=== PATIENT | female | born 1995 | race Caucasian/White ===

== ENCOUNTER 2019-03-19 04:40 | Inpatient (IN) | payer BC, OTHER ==
[2019-03-19 06:09] LABS: BASO % 0.2 % (0-2.0); EOS % 0.8 % (0-4.5); HEMATOCRIT 32.8 % (32.4-45.2); HEMOGLOBIN 11.1 GM/dL (10.7-15.3); LYMPH % 14.1 % (8-40); MCH 31.7 pg (25.7-33.7); MCHC 33.9 g/dl (32.0-36.0); MEAN CELL VOLUME 93.3 fl (80-96); MEAN PLT VOLUME 9.5 fl (7.5-11.1); MONO % 8.5 % (3.8-10.2); NEUT % 76.4 % (42.8-82.8); PLATELET COUNT 222 K/MM3 (134-434); RBC 3.52 M/mm3 (3.60-5.2); RDW 14.2 % (11.6-15.6)
[2019-03-19 06:28] LABS: INR 0.95 (0.83-1.09); PROTHROMBIN TIME (PATIENT) 11.2 SEC (9.7-13.0)
[2019-03-19 06:30] LABS: ACTIVATED PTT 31.1 SECONDS (25.2-36.5); BLOOD UREA NITROGEN 5.6 mg/dL (7-18); CALCIUM 8.7 mg/dL (8.5-10.1); CREATININE 0.5 mg/dL (0.55-1.3); POTASSIUM 3.8 mmol/L (3.5-5.1)
[2019-03-19 06:44] VITALS: BMI 25.3
[2019-03-19] MEDS ORDERED: ELECTROLYTE-148 SOLN 1,000 ML IV SCH (07:00)
[2019-03-19] MEDS ORDERED: FENTANYL/BUPIVACAINE/NS/PF - PCEA - 50 ML DISP.SYRIN EP ONE ×3 (07:41→15:32)
[2019-03-19] MEDS ORDERED: NALOXONE HCL 0.4 MG/ML VIAL IVPUSH PRN (07:44)
[2019-03-19] MEDS ORDERED: LIDO 2%/EPI 1:200000 PRESRVFRE (20 ML SDVIAL) ONE (07:47)
[2019-03-19] MEDS: FENTANYL/BUPIVACAINE/NS/PF - PCEA - 50 ML DISP.SYRIN EP SCH (08:10)
[2019-03-19] MEDS ORDERED: OXYTOCIN 20 UNITS in 0.9% NS 20 UNIT/1,000 ML INFUS.BAG IV ONE ×2 (14:32→18:49)
--- NOTE | 2019-03-19 17:10 | HP ---
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 Weeks Gestation by Dates: 39.5 ...EDC by Dates: 03/21/18 Heme/Onc: Yes: Anemia Infectious Disease: Yes: Other (txed for BV and yeast) - Past Surgical History Hx Myomectomy: No Hx Transabdominal Cerclage: No Additional Surgical History: lt oophorectomy - Smoking History Smoking history: Never smoked - Alcohol/Substance Use Hx Alcohol Use: No - Social History Usual Living Arrangement: Yes: With Spouse History of Recent Travel: No Home Medications - Allergies Allergies/Adverse Reactions: Allergies Allergy/AdvReac Type Severity Reaction Status Date / Time benzoyl peroxide Allergy Intermediate Swelling Verified 03/19/19 07:07 - Home Medications Home Medications: Ambulatory Orders Pnv No.95/Ferrous Fum/Folic AC [ Vitamin Tablet] 1 tab PO DAILY Review of Systems - Review of Systems Constitutional: reports: No Symptoms Eyes: reports: No Symptoms HENT: reports: No Symptoms Neck: reports: No Symptoms Cardiovascular: reports: No Symptoms Respiratory: reports: No Symptoms Gastrointestinal: reports: No Symptoms Genitourinary: reports: No Symptoms Breasts: reports: No Symptoms Reported Musculoskeletal: reports: No Symptoms Integumentary: reports: No Symptoms Neurological: reports: Headache Endocrine: reports: No Symptoms Hematology/Lymphatic: reports: No Symptoms Psychiatric: reports: No Symptoms Physical Exam - Maternity Vital Signs: Vital Signs Temperature 98.4 F 03/19/19 13:00 Pulse Rate 88 03/19/19 16:15 Respiratory Rate 03/19/19 16:15 Blood Pressure 125/80 03/19/19 16:15 O2 Sat by Pulse Oximetry (%) 100 03/19/19 16:15 Constitutional: Yes: Well Nourished, No Distress, Calm Eyes: Yes: WNL, Conjunctiva Clear, EOM Intact HENT: Yes: WNL, Atraumatic, Normocephalic Neck: Yes: WNL, Supple, Trachea Midline Cardiovascular: Yes: WNL, Regular Rate and Rhythm Breast(s): Yes: WNL - Abdominal Exam/OB Fundal Height: 38 Number of Fetuses: Single Presentation: Vertex Contractions: Yes Regularity: Regular Intensity: Mod/Strong Monitor Mode: External Heart Rate Location: [facility] Category: I Accelerations: Non-Uniform Decelerations: None - Vaginal Exam/OB Speculum Exam: No Dilatation (cm): 3 cm Effacement (%): 80 Amniotic Membrane Status: Intact Presentation: Vertex/Position Station: -2 - Physical Exam Musculoskeletal: Yes: WNL Extremities: Yes: WNL Edema: LLE: Trace, RLE: Trace Deep Tendon Reflex Grade: Normal +2 Psychiatric: Yes: WNL - Labs Lab Results: CBC, BMP 03/19/19 05:40 03/19/19 05:40 Hemorrhage Risk Assessment - Risk Factors Medium Risk Factors: Yes: None High Risk Factors: Yes: None Risk Score: 1 Risk Level: Medium Risk Problem List - Problems (1) with 39 completed weeks gestation Code(s): Z3A.39 - 39 WEEKS GESTATION OF (2) Labor established Code(s): ESA5333 - (3) Seizure Code(s): R56.9 - UNSPECIFIED CONVULSIONS (4) Seizure disorder Code(s): G40.909 - EPILEPSY, UNSP, NOT INTRACTABLE, WITHOUT STATUS EPILEPTICUS Assessment/Plan admit FHM pain management , wantss epidural anesthesia anticipate vaaginal delivery GBS negative
--- NOTE | 2019-03-19 17:11 | PN ---
Progress Note (short form) - Note Progress Note: 430 pm full 100 vx 3+ narda, wants to push , r cat 1
--- NOTE | 2019-03-19 17:14 | PN ---
Delivery - Delivery Vaginal Delivery: Spontaneous Type of Anesthesia: Local, Epidural Episiotomy/Laceration: Midline (cx full , head on pernium , head delivered, nasopharynx suctioned , ant and posterior shoulder with no difficulty , live baby girl, apgaar 8/9 , median episiotmy in 3 layers with 2 chromic in 3 layers , placenta spontaneous , complete , rectal exam no defect, good tone ebl 400cc , baby bonded with mom) Delivery, Single - Feeding Plan Initial Plan: Elected not to breastfeed exclusively throughout hospitalization
[2019-03-19] MEDS ORDERED: BISACODYL 10 MG SUPP.RECT RC PRN (17:15)
[2019-03-19] MEDS ORDERED: BENZOCAINE 20% 57 GM BOTTLE TP PRN (17:15)
[2019-03-19] MEDS ORDERED: BENZOCAINE 28 GM HEMORRHOIDAL OINTMENT TP PRN (17:15)
[2019-03-19] MEDS ORDERED: WITCH HAZEL 50% (TUCKS) 40 PAD/JAR PAD TP PRN (17:15)
[2019-03-19] MEDS ORDERED: METHYLERGONOVINE MALEATE 0.2 MG/1 ML AMP IM PRN (17:15)
[2019-03-19] MEDS ORDERED: D5W-LR W/ 20 UNITS OXYTOCIN 20 UNIT/1,000 ML INFUS.BAG IV SCH (17:15)
--- NOTE | 2019-03-19 17:15 | PN ---
Progress Note (short form) - Note Progress Note: 2 pm srom clear, fhr cat1
[2019-03-19] MEDS ORDERED: IBUPROFEN 600 MG TABLET (FP) PO ONE (17:53)
[2019-03-19] MEDS ORDERED: ACETAMINOPHEN 325 MG TABLET (FP) ONE (17:54)
[2019-03-19] MEDS: ACETAMINOPHEN 325 MG TABLET (FP) PO PRN ×2 (17:55→21:34)
[2019-03-19] MEDS: IBUPROFEN 600 MG TABLET (FP) PO PRN ×2 (17:55→21:33)
[2019-03-19] MEDS ORDERED: oxyCODONE HCL 5 MG TABLET PO ONE (18:00)
[2019-03-19] MEDS ORDERED: ACETAMINOPHEN 325 MG TABLET (FP) PO ONE (18:00)
[2019-03-19] MEDS ORDERED: OXYTOCIN 20 UNITS in 0.9% NS 20 UNIT/1,000 ML INFUS.BAG IV SCH (18:15)
[2019-03-19] MEDS: FERROUS SO4 325 MG TABLET (FP) PO SCH (18:21)
--- NOTE | 2019-03-19 19:43 | CON.NEURO ---
Consult Consult Specialty:: harshal Referred by:: Bk - History of Present Illness History of Present Illness: 23 year sold woman s/p normal delievery with hx of ?? 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 (hx seizure disorder, on no meds ,last episode last summer) Infectious Disease: Yes: Other (txed for BV and yeast) - Past Surgical History Additional Surgical History: lt oophorectomy - Alcohol/Substance Use Hx Alcohol Use: No - Smoking History Smoking history: Never smoked - Social History History of Recent Travel: No Home Medications - Allergies Allergies/Adverse Reactions: Allergies Allergy/AdvReac Type Severity Reaction Status Date / Time benzoyl peroxide Allergy Intermediate Swelling Verified 03/19/19 07:07 - Home Medications Home Medications: Ambulatory Orders Pnv No.95/Ferrous Fum/Folic AC [ Vitamin Tablet] 1 tab PO DAILY Family Medical History Family History: Unable to Obtain Review of Systems - Review of Systems Constitutional: reports: No Symptoms Eyes: reports: No Symptoms Neurological: reports: No Symptoms Physical Exam-Neuro Vital Signs: Vital Signs Temperature 99.7 F H 03/19/19 17:50 Pulse Rate 96 H 03/19/19 17:35 Respiratory Rate 102 H 03/19/19 17:50 Blood Pressure 124/65 03/19/19 17:50 O2 Sat by Pulse Oximetry (%) 100 03/19/19 16:15 Constitutional: Yes: Well Nourished Neck: Yes: WNL Cardiovascular: Yes: WNL Psychiatric: Yes: Alert, Oriented Labs: CBC, BMP 03/19/19 05:40 03/19/19 05:40 INR, PTT INR 0.95 (0.83-1.09) 03/19/19 05:40 - Neuro Exam Level Of Consciousness: Yes: Oriented to Person, Oriented to Place Eyes: Yes: PERRLA Speech: WNL Dominant Hand: Right Cranial Nerves II-XII Intact: Yes Gag: Present DTR's: 1+ Left Bicep, 1+ Right Bicep, 1+ Left Tricep, 1+ Right Tricep Response to light touch: Normal Response to pain prick: Normal Response to temperature: Normal Response to vibration: Normal Motor Strength: 3/5: Left Arm, Right Arm, Left Leg, Right Leg Gait: Deferred Problem List - Problems (1) Seizure Assessment/Plan: sz precautions Head CT EEg as outpatient No Antiseizure for now Thank Ricky caputo Md Code(s): R56.9 - UNSPECIFIED CONVULSIONS
--- NOTE | 2019-03-20 07:52 | PN ---
Post Progress Note - Subjective Subjective: patient is doing well, lochia decreased, planning to breast feed, S/P neuro consult for H/O seizures Post Day: 1 Type of Delivery: Vital Signs: Vital Signs Temperature 98.7 F 03/20/19 06:00 Pulse Rate 85 03/20/19 06:00 Respiratory Rate 20 03/20/19 06:00 Blood Pressure 111/66 03/20/19 06:00 O2 Sat by Pulse Oximetry (%) 100 03/19/19 16:15 Breast Exam: Yes: Other Uterus: Yes: Fundus Firm Abdomen/GI: Yes: Abdomen soft Lochia, amount: Moderate Extremities: Yes: Calves non-tender Activity: Ambulating - Labs Labs: CBC WBC 15.0 K/mm3 (4.0-10.0) H 03/19/19 05:40 RBC 3.52 M/mm3 (3.60-5.2) L 03/19/19 05:40 Hgb 11.1 GM/dL (10.7-15.3) 03/19/19 05:40 Hct 32.8 % (32.4-45.2) 03/19/19 05:40 MCV 93.3 fl (80-96) 03/19/19 05:40 MCH 31.7 pg (25.7-33.7) 03/19/19 05:40 MCHC 33.9 g/dl (32.0-36.0) 03/19/19 05:40 RDW 14.2 % (11.6-15.6) 03/19/19 05:40 Plt Count 222 K/MM3 (134-434) 03/19/19 05:40 MPV 9.5 fl (7.5-11.1) 03/19/19 05:40 Absolute Neuts (auto) 11.5 K/mm3 (1.5-8.0) H 03/19/19 05:40 Neutrophils % 76.4 % (42.8-82.8) 03/19/19 05:40 Lymphocytes % 14.1 % (8-40) 03/19/19 05:40 Monocytes % 8.5 % (3.8-10.2) 03/19/19 05:40 Eosinophils % 0.8 % (0-4.5) 01/13/20 05:40 Basophils % 0.2 % (0-2.0) 03/19/19 05:40 Nucleated RBC % 0 % (0-0) 03/19/19 05:40 Assessment/Plan 23 y/o on PPD #1 in stable condition, H/O seizure with last episode in September, neurology on board -Continue PP care -F/U neurology -Anticipate D/C home tomorrow
[2019-03-20] MEDS ORDERED: oxyCODONE HCL 5 MG TABLET ONE (07:54)
[2019-03-20] MEDS: IBUPROFEN 600 MG TABLET (FP) PO PRN ×3 (07:56→20:48)
[2019-03-20] MEDS ORDERED: oxyCODONE HCL 5 MG TABLET PO ONE (08:03)
[2019-03-20 09:17] LABS: BASO % 0.2 % (0-2.0); EOS % 0.4 % (0-4.5); HEMATOCRIT 30.8 % (32.4-45.2); HEMOGLOBIN 10.3 GM/dL (10.7-15.3); LYMPH % 4.5 % (8-40); MCH 31.2 pg (25.7-33.7); MCHC 33.3 g/dl (32.0-36.0); MEAN CELL VOLUME 93.6 fl (80-96); MEAN PLT VOLUME 9.2 fl (7.5-11.1); MONO % 5.9 % (3.8-10.2); PLATELET COUNT 215 K/MM3 (134-434); RBC 3.29 M/mm3 (3.60-5.2); RDW 14.2 % (11.6-15.6); WHITE BLOOD COUNT 21.9 K/mm3 (4.0-10.0)
[2019-03-20] MEDS: FERROUS SO4 325 MG TABLET (FP) PO SCH ×2 (10:19→20:48)
[2019-03-20] MEDS: PRENATAL VITAMINS W/ FOLIC ACID TABLET (FP) PO SCH (10:19)
[2019-03-20] MEDS: ACETAMINOPHEN 325 MG TABLET (FP) PO PRN ×2 (14:05→20:48)
[2019-03-20 14:48] LABS: ANISOCYTOSIS 1+; MACROCYTOSIS 0; PLATELET ESTIMATE NORMAL
[2019-03-20] MEDS ORDERED: SENNOSIDES/DOCUSATE COMBO (SENNA PLUS) TABLET (UD) PO PRN (22:00)
[2019-03-20] MEDS: FENTANYL/BUPIVACAINE/NS/PF - PCEA - 50 ML DISP.SYRIN EP SCH (23:59)
[2019-03-21] MEDS: ACETAMINOPHEN 325 MG TABLET (FP) PO PRN ×2 (05:13→12:04)
[2019-03-21] MEDS: IBUPROFEN 600 MG TABLET (FP) PO PRN ×2 (05:13→12:05)
--- NOTE | 2019-03-21 07:35 | DS ---
Physical Exam-PRODUCTION CORRUGATOR Vital Signs: Vital Signs Temperature 98.2 F 03/21/19 05:20 Pulse Rate 93 H 03/21/19 05:20 Respiratory Rate 18 03/21/19 05:20 Blood Pressure 119/72 03/21/19 05:20 O2 Sat by Pulse Oximetry (%) 100 03/19/19 16:15 Constitutional: Yes: Well Nourished Eyes: Yes: WNL HENT: Yes: WNL Neck: Yes: WNL Cardiovascular: Yes: WNL Respiratory: Yes: WNL Gastrointestinal: Yes: WNL ....Post : Yes: Uterus firm, Uterus non-tender (upto umblicus), Slight lochia rubra (perineum laceration healing) Breast(s): Yes: WNL (soft, not engorged , BF) Musculoskeletal: Yes: WNL Extremities: Yes: WNL. No: Calf Tenderness Edema: LLE: 1+, RLE: 1+ Integumentary: Yes: WNL, Tattoos Neurological: Yes: WNL, Other (neuroconsult done) ...Motor Strength: WNL Psychiatric: Yes: WNL Labs: CBC, BMP 03/20/19 08:42 03/19/19 05:40 Delivery - Delivery Vaginal Delivery: Spontaneous Type of Anesthesia: Local, Epidural Episiotomy/Laceration: Midline EBL (cc): 400 Delivery, Single - Stages of Labor Date 1st Stage Initiatied: 03/19/19 Time 1st Stage Initiated: 00:00 Date 2nd Stage Initiated: 03/19/19 Time 2nd Stage Initiated: 16:30 Date of Delivery: 03/19/19 Time of Delivery: 16:43 Time Placenta Delivered: 17:00 - Condition of Hat Designer/Greenhouse Specialist Present: No Infant Gender: Female Weight: 7 lb 13 oz Position: Left, OA Total Hours ROM (Hrs/Mins): 3hrs - 1 Minute Total Score: 8 5 Minutes Total Score: 9 - [place] Feeding Plan Initial Plan: Elected not to breastfeed exclusively throughout hospitalization Remarks - Remarks Remarks: pp course uneventful pt need to follow up with neurologist for seizure follow up discharge today Discharge Summary Problems reviewed: Yes Reason For Visit: LABOR Current Active Problems Labor established (Acute) Normal spontaneous vaginal delivery (Acute) with 39 completed weeks gestation (Acute) Seizure (Acute) Seizure disorder (Acute) Condition: Stable - Instructions Diet, Activity, Other Instructions: Discharge Instructions * Out of Bed * * Regular Diet * Salena Care * Avoid sex for 6 weeks * RTC 3 weeks for f/u at [address] [place] [address], call [phone] Ruelas * Follow with your Neurologist for Seizures If you experience excessive bleeding or fever over 101 degrees, call doctor, the clinic or go to the Emergency Room. Referrals: Tay Ruelas MD [Staff Physician] - Disposition: HOME - Home Medications Comprehensive Discharge Medication List: Ambulatory Orders Pnv No.95/Ferrous Fum/Folic AC [ Vitamin Tablet] 1 tab PO DAILY Acetaminophen [Tylenol .Regular Strength -] 650 mg PO Q3H PRN tablet 03/21/19 Benzocaine [Americaine 20% [place] -] 1 spray TP PRN PRN bottle 03/21/19 Ferrous Sulfate [Feosol] 325 mg PO DAILY #30 tab 03/21/19 Ibuprofen [Motrin -] 200 mg PO Q4H PRN tablet 03/21/19 Vitamins (Sjr) - 1 tab PO DAILY #60 tablet 03/21/19 Witch Joslyn 50% (Tucks) [Tucks Pads -] 1 pad TP PRN PRN pad 03/21/19
[2019-03-21 08:45] VITALS: BP 115/74; PULSE 80; TEMP 98.3
[2019-03-21] MEDS: FERROUS SO4 325 MG TABLET (FP) PO SCH (10:05)
[2019-03-21] MEDS: PRENATAL VITAMINS W/ FOLIC ACID TABLET (FP) PO SCH (10:05)
== END 2019-03-21 13:10 | disposition home or self-care (01) | DRG 807 ==
LOC: UNDOADMIN 04:40 → JLDR 04:40 → J3W 20:10
PROVIDERS: ADMIT Obstetrics & Gynecology; ATTEND Obstetrics & Gynecology
PROC: 0W8NXZZ Division of Female Perineum, External Approach (ICD-10-PCS; principal; 2019-03-19)
PROC: 10E0XZZ Delivery of Products of Conception, External Approach (ICD-10-PCS; 2019-03-19)
DX: O99.353 Diseases of the nervous system complicating pregnancy, third trimester (principal); Z37.0 Single live birth; Z3A.39 39 weeks gestation of pregnancy
CPT/HCPCS: 36415; 36600; 59409; 80048; 82803; 85025; 85610; 85730; 86593; 86850; 86900; 86901

== ENCOUNTER 2019-03-26 03:25 | Inpatient (IN) | payer BC, OTHER ==
[2019-03-26 03:36] VITALS: BMI 23.9
[2019-03-26] MEDS ORDERED: SODIUM CHLORIDE 0.9% 500 ML INFUS.BAG IV ONE (03:43)
[2019-03-26] MEDS ORDERED: OXYTOCIN 20 UNITS in 0.9% NS 1000 ML INFUS.BAG IV ONE (03:46)
[2019-03-26] MEDS ORDERED: OXYTOCIN 10 UNITS/ML VIAL IM ONE (03:47)
[2019-03-26] MEDS ORDERED: OXYTOCIN 10 UNITS/ML VIAL ONE ×2 (03:51→03:55)
[2019-03-26] MEDS ORDERED: ONDANSETRON 4 MG/2 ML VIAL IVPUSH ONE (03:54)
[2019-03-26] MEDS ORDERED: ONDANSETRON 4 MG/2 ML VIAL ONE (03:54)
--- NOTE | 2019-03-26 03:55 | PDOC ---
History of Present Illness - General Chief Complaint: Vaginal Bleeding Stated Complaint: VAGINAL BLEEDING Time Seen by Provider: 03/26/19 03:54 - History of Present Illness Initial Comments: The pt is a 23F , 7 days post s/p , spotting since that time, however sudden onset profuse vaginal bleeding tonight with passage of clots and blood. Denies fevers, chest pain, SOB, dizziness, vision changes, abdominal pain, dysuria, hematuria, diarrhea, blood in stool Denies PMH, PSH, meds 03/26/19 03:54 Past History - Past Medical History Allergies/Adverse Reactions: Allergies Allergy/AdvReac Type Severity Reaction Status Date / Time benzoyl peroxide Allergy Intermediate Swelling Verified 03/26/19 03:35 Home Medications: Ambulatory Orders Pnv No.95/Ferrous Fum/Folic AC [ Vitamin Tablet] 1 tab PO DAILY Acetaminophen [Tylenol .Regular Strength -] 650 mg PO Q3H PRN tablet 03/21/19 Benzocaine [Americaine 20% [place] -] 1 spray TP PRN PRN bottle 03/21/19 Ferrous Sulfate [Feosol] 325 mg PO DAILY #30 tab 03/21/19 Ibuprofen [Motrin -] 200 mg PO Q4H PRN tablet 03/21/19 Vitamins (Sjr) - 1 tab PO DAILY #60 tablet 03/21/19 Witch Joslyn 50% (Tucks) [Tucks Pads -] 1 pad TP PRN PRN pad 03/21/19 - Psycho Social/Smoking Cessation Hx Smoking History: Never smoked Hx Alcohol Use: No Drug/Substance Use Hx: No *Physical Exam - Vital Signs Last Vital Signs Temp Pulse Resp BP Pulse Ox 98.2 F 78 20 138/78 100 03/26/19 03:35 03/26/19 03:35 03/26/19 03:35 03/26/19 03:35 03/26/19 03:35 - Physical Exam GENERAL: Awake, alert, and oriented to person/place/time, anxious appearing HEAD: No signs of trauma, normoc ephalic, atraumatic EYES: PERRLA, EOMI, sclera anicteric, conjunctiva clear ENT: Hearing grossly normal, nares patent, oropharynx clear without exudates. Moist mucosa LUNGS: No distress, speaks in full sentences, clear to auscultation bilaterally HEART: Regular rate and rhythm, normal S1 and S2, no murmurs appreciated, peripheral pulses normal and equal bilaterally ABDOMEN: Soft, mild suprapubic TTP w/o rebound or guarding, normoactive bowel sounds : Copious blood/clot at vaginal introits EXTREMITIES: Normal inspection, Normal range of motion, no edema. No clubbing or cyanosis NEUROLOGICAL: Cranial nerves II through XII grossly intact. Normal speech, no focal sensorimotor deficits SKIN: Warm, Dry 03/26/19 04:01 ED Treatment Course - LABORATORY CBC & Chemistry Diagram: 03/26/19 03:36 03/26/19 03:36 - Medications Given in the ED: ED Medications Discontinued Medications Generic Name Dose Route Start Last Admin Trade Name Tito PRN Reason Stop Dose Admin Sodium Chloride 1,000 ml 03/26/19 03:43 03/26/19 03:49 Normal Saline - IV 03/26/19 03:44 1,000 ml ONCE ONE Administration Medical Decision Making - Medical Decision Making The pt is a 23F , 7 days post s/p , spotting since that time, however sudden onset profuse vaginal bleeding tonight with passage of clots and blood. ED Course 2 large bore IVs placed Labs drawn and sent IVF and Pitocin initiated Message left for Dr. Ruelas, awaiting call back L&D contacted, will transfer pt to L&D Pt normotensive, non-tachycardic at time of department departure Labs pending 03/26/19 03:59 Consent for blood transfusion obtained and 2u pRBCs ordered 03/26/19 05:47 Discharge - Discharge Information Problems reviewed: Yes Clinical Impression/Diagnosis: Vaginal hemorrhage Condition: Good - Admission Yes - Follow up/Referral - Patient Discharge Instructions - Post Discharge Activity
[2019-03-26] MEDS ORDERED: OXYTOCIN 20 UNITS in 0.9% NS 20 UNIT/1,000 ML INFUS.BAG IV SCH ×3 (04:00→09:58)
[2019-03-26 04:01] LABS: BASO % 0.4 % (0-2.0); EOS % 2.4 % (0-4.5); HEMATOCRIT 30.5 % (32.4-45.2); HEMOGLOBIN 10.2 GM/dL (10.7-15.3); LYMPH % 29.5 % (8-40); MCH 31.4 pg (25.7-33.7); MCHC 33.4 g/dl (32.0-36.0); MEAN CELL VOLUME 93.9 fl (80-96); MEAN PLT VOLUME 8.1 fl (7.5-11.1); MONO % 10.1 % (3.8-10.2); NEUT % 57.6 % (42.8-82.8); PLATELET COUNT 376 K/MM3 (134-434); RBC 3.25 M/mm3 (3.60-5.2); WHITE BLOOD COUNT 10.6 K/mm3 (4.0-10.0)
[2019-03-26 04:16] LABS: INR 0.95 (0.83-1.09); PROTHROMBIN TIME (PATIENT) 11.2 SEC (9.7-13.0)
--- NOTE | 2019-03-26 04:21 | PDOC ---
Attending Attestation - Resident Resident Name: Iron Cunningham - ED Attending Attestation I have performed the following: I have examined & evaluated the patient, The case was reviewed & discussed with the resident, I agree w/resident's findings & plan - HPI HPI: 03/26/19 04:19 Pt delivered her baby 1 week ago She is M1 comes with vaginal hemorrhage. As per boyfriend, she lost 1 pad of Blood, now with passage of large clots, approx 3 units of blood. - Physicial Exam PE: 03/30/19 22:19 Pt has vaginal hemorrhage; pt is pale and anxious and crying. At least 3 units of blood in her diaper. When she is reasssured she is not tachycardic and she was placed on oxygem to relax her. - Medical Decision Making 03/26/19 04:21 Pt was taken by myself and the nurses to L+D after 2large bore IVs started and pitocin drip started. 03/30/19 22:20 I remained with the patient for at least 20 min upstairs. Nurses remained upstairs for 90 minutes. I sent my resident Dr. Cunningham to help on L+D, once he was caught up with his cases. The ER med tech ran blood btwn blood back and L+D. Dr Gauthier attending to the patient.
[2019-03-26 04:24] LABS: ALBUMIN 2.8 g/dl (3.4-5.0); BILIRUBIN,TOTAL 0.1 mg/dL (0.2-1); BLOOD UREA NITROGEN 18.5 mg/dL (7-18); CALCIUM 8.6 mg/dL (8.5-10.1); CREATININE 0.5 mg/dL (0.55-1.3); POTASSIUM 3.8 mmol/L (3.5-5.1); TOT PROT 6.5 g/dl (6.4-8.2)
[2019-03-26] MEDS ORDERED: CARBOPROST TROMETHAMINE 250 MCG/ML AMPUL IM ONE ×2 (04:25→07:14)
[2019-03-26] MEDS ORDERED: MISOPROSTOL 100 MCG TABLET NR ONE (05:00)
[2019-03-26] MEDS ORDERED: ceFAZolin 2 GRAM PREMIX BAG IVPB ONE (05:17)
[2019-03-26] MEDS ORDERED: IBUPROFEN 600 MG TABLET (FP) PO PRN (05:32)
[2019-03-26] MEDS ORDERED: ACETAMINOPHEN 325 MG TABLET (FP) PO PRN (05:32)
[2019-03-26] MEDS ORDERED: BISACODYL 10 MG SUPP.RECT RC PRN ×2 (05:32→09:58)
[2019-03-26] MEDS ORDERED: oxyCODONE HCL 5 MG TABLET PO PRN ×2 (05:32→09:58)
[2019-03-26] MEDS ORDERED: BENZOCAINE 28 GM HEMORRHOIDAL OINTMENT TP PRN ×2 (05:32→09:58)
[2019-03-26] MEDS ORDERED: METHYLERGONOVINE MALEATE 0.2 MG/1 ML AMP IM PRN ×2 (05:32→09:58)
[2019-03-26] MEDS ORDERED: WITCH HAZEL 50% (TUCKS) 40 PAD/JAR PAD TP PRN (05:32)
[2019-03-26] MEDS ORDERED: BENZOCAINE 20% 57 GM BOTTLE TP PRN ×2 (05:32→09:58)
--- NOTE | 2019-03-26 05:53 | HP ---
Past Medical History - Primary Care Physician PCP:: Yumiko Gauthier - Admission Chief Complaint: 23 yrs s/p LD on 03/19/19 presemted in ER with heavy vaginal bleeding, passing blood clots brought to l&D for management of delayed PPH History of Present Illness: pt states she had with episiotomy on 03/19/19 at [address] Ruelas baby girl , 7'13" she was in labor for 12 hrs she was discharged o 03/21/19 She is breast feeding she was taking her pnv & Iron she had neurology consult before discharge , she was advised to go for post neuro follow up. 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 7'13" ) ...Spon : 1 Heme/Onc: Yes: Anemia Infectious Disease: Yes: Other (txed for BV and yeast) Psych: No: Addictions, Anxiety, Bipolar, Depression, Panic, Psychosis, Schizophrenia, Other - Past Surgical History Past Surgical History: Yes: None, Oopherectomy ( rt oopherctomy laproscopically due to 15 cm ovarian cyst) Hx Myomectomy: No Hx Transabdominal Cerclage: No - Smoking History Smoking history: Never smoked - Alcohol/Substance Use Hx Alcohol Use: No History of Substance Use: reports: None - Social History History of Recent Travel: No Home Medications - Allergies Allergies/Adverse Reactions: Allergies Allergy/AdvReac Type Severity Reaction Status Date / Time benzoyl peroxide Allergy Intermediate Swelling Verified 03/26/19 03:35 - Home Medications Home Medications: Ambulatory Orders Pnv No.95/Ferrous Fum/Folic AC [ Vitamin Tablet] 1 tab PO DAILY Acetaminophen [Tylenol .Regular Strength -] 650 mg PO Q3H PRN tablet 03/21/19 Benzocaine [Americaine 20% [place] -] 1 spray TP PRN PRN bottle 03/21/19 Ferrous Sulfate [Feosol] 325 mg PO DAILY #30 tab 03/21/19 Ibuprofen [Motrin -] 200 mg PO Q4H PRN tablet 03/21/19 Vitamins (Sjr) - 1 tab PO DAILY #60 tablet 03/21/19 Witch Joslyn 50% (Tucks) [Tucks Pads -] 1 pad TP PRN PRN pad 03/21/19 Physical Exam - Maternity Vital Signs: Vital Signs Temperature 98.2 F 03/26/19 03:35 Pulse Rate 78 03/26/19 03:35 Respiratory Rate 20 03/26/19 03:35 Blood Pressure 138/78 03/26/19 03:35 O2 Sat by Pulse Oximetry (%) 100 03/26/19 03:35 Constitutional: Yes: Anxious, Severe Distress, Pallor, Other Eyes: Yes: WNL HENT: Yes: WNL Neck: Yes: WNL Cardiovascular: Yes: WNL Lungs: Clear to auscultation Breast(s): Yes: WNL (not engorged 14 weeks) - Abdominal Exam/OB Fundal Height: 14 (PP Ut ,os close, unable to enter beyond int os ) - Vaginal Exam/OB Vaginal Bleediing: Fresh Blood (passing blood clots, constantly trickling os closed. vagina & perineum s/p midline episiotomy sutures intact) Speculum Exam: No Dilatation (cm): close - Physical Exam Musculoskeletal: Yes: WNL Extremities: Yes: WNL. No: Calf Tenderness Edema: No Integumentary: Yes: Body Piercing, Tattoos Deep Tendon Reflex Grade: Normal +2 ...Motor Strength: WNL Psychiatric: Yes: WNL, Alert, Oriented - Labs Lab Results: CBC, BMP 03/26/19 03:36 03/26/19 03:36 Laboratory Tests 03/26/19 03/26/19 03/26/19 03:36 03:36 03:36 PT with INR 11.20 INR 0.95 PTT (Actin FS) 33.0 Calcium 8.6 AST 25 ALT 28 Total Protein 6.5 Albumin 2.8 L Blood Type Antibody Screen 03/26/19 03:36 PT with INR INR PTT (Actin FS) Calcium AST ALT Total Protein Albumin Blood Type O POSITIVE Antibody Screen Negative Problem List - Problems (1) Delayed and secondary hemorrhage with delivery Code(s): O72.2 - DELAYED AND SECONDARY HEMORRHAGE (2) Atonic hemorrhage Code(s): O72.1 - OTHER IMMEDIATE HEMORRHAGE Assessment/Plan 23 yrs , s/p , 7 days ago , presented with heavy vaginal bleeding clots, due to Atonic PPH bed side US was done , uterus appered empty, no retained products noted . PLAN : Estes Catheter insrted 40 iU pitocin in 1000 ml , iv open , followed by 200 ml/hr 4.16 AM stat Hemabate 250 mcg given 5.05 AM 1000 mcg Cytotec AK given stat attempt was made to insert Bakri Balloon in the uterus m attempt failed, because catheter kept curling, & could not pass beyond int os 5.20 AM 2gm ivpb Ancef prophylactically was given 5.35 AM 1st unit pack cell blood started Plan will give one more unit will continue 1000 ml Nsaline with 20 IU pitocin prn 6.15AM passed blood clot approxx 30 ml IM Methergine 0.2 mg stat ordered 7.15 AM pt still continue to bleed , passed blood clot 100 ml IM hemabate 250 mcg stat bedside sono to r/o retained POC consent for D&C & insertion of Bakri Balloon under GA start 2 nd unit pack cell 7.30 AM official sono by bed side done , possible retained products at fundus on rt side at fundus plan conset for evacuation & currettage & possible insertion of bakro balloon 7.45 AM Temp 101 rx Iv tylenol 1000 mg stat in OR , will be started by anesthsiologist pt is transferred to holding room in OR
[2019-03-26] MEDS ORDERED: CEFAZOLIN 2 GM/D5W 2 GM/50 ML ML IVPB ONE (06:30)
[2019-03-26] MEDS ORDERED: OXYTOCIN 20 UNITS in 0.9% NS 20 UNIT/1,000 ML INFUS.BAG IV ONE ×2 (07:04→09:32)
[2019-03-26] MEDS ORDERED: ACETAMINOPHEN 1000 MG/100 ML VIAL (NON FORMULARY) IVPB ONE (07:56)
[2019-03-26] MEDS ORDERED: FERROUS SO4 325 MG TABLET (FP) PO SCH (08:00)
[2019-03-26] MEDS ORDERED: EPHEDRINE SULFATE/0.9% NACL/PF 50 MG/10 ML SYRINGE NR ONE (08:13)
[2019-03-26] MEDS ORDERED: PROPOFOL 20 ML ONE ×3 (08:13→08:59)
[2019-03-26] MEDS ORDERED: MIDAZOLAM HCL 2 MG/2 ML SINGLE DOSE VIAL ONE (08:14)
[2019-03-26] MEDS ORDERED: ROCURONIUM BROMIDE 50 MG/5 ML SYRINGE ONE (08:15)
[2019-03-26] MEDS ORDERED: DESFLURANE GAS 240 ML BOTTLE IH ONE ×2 (08:53→08:54)
[2019-03-26] MEDS ORDERED: DEXAMETHASONE SOD PHOSPHATE 4 MG/1 ML VIAL ONE (09:00)
[2019-03-26] MEDS ORDERED: LIDOCAINE HCL/PF 2% SDV 5ML VIAL ONE (09:00)
--- NOTE | 2019-03-26 09:20 | PN ---
Progress Note (short form) - Note Progress Note: OR procedure w Dr. Escobar. I assisted Dr. Brannon through entire case. TA SONOGRAM PERFORMED: UTERINE CAVITY empty following suction D&C. Performed suction D and C as per Dr. Escobar's request following hers: cavity empty, no POC tissue left. Patient did well.
[2019-03-26] MEDS ORDERED: LACTATED RINGERS SOLUTION 1,000 ML IV SCH (09:30)
--- NOTE | 2019-03-26 09:30 | OP ---
Operative Note - Note: Operative Date: 03/26/19 Pre-Operative Diagnosis: delayed pph, retained POC , atonic hemorrhage Operation: suction evacuation currettage,. insertion of Bakri Balloon. revision of episiotomy wound Findings: UT 14 weeks size blood clots approx 200 ml evacuated before starting procedure suction evacuation done with # 12 suction canula curettage done to remove adherent POC small amount from fundus & ant wall Intraop sonogram was done to confirm removal of POC Pt still continue to bleed Bakri Balloon was inserted in uterus with US guide upto fundus 180 ml saline inserted in uterine balloon epi wound was opened , which was closed with chr catgut #2/0 in layers Surgeon: Yumiko Gauthier Baker Operator Automatic: Drake Pastor Anesthesiologist/CAFE WORKER: Jeremías Matt Anesthesia: General Specimens Removed: uterine contents Estimated Blood Loss (mls): 500 Drains, Volume Out (mls): 200 (preop 900 ml irine in bag ) Blood Volume Replaced (mls): 2 (1 unit preop & 2 nd unit contd in OR ) Fluid Volume Replaced (mls): 700 Operative Report Dictated: Yes
--- NOTE | 2019-03-26 09:54 | EKG ---
Test Reason : Blood Pressure : / mmHG Vent. Rate : 063 BPM Atrial Rate : 063 BPM P-R Int : 146 ms QRS Dur : 076 ms QT Int : 404 ms P-R-T Axes : 063 055 061 degrees QTc Int : 413 ms NORMAL SINUS RHYTHM NORMAL ECG NO PREVIOUS ECGS AVAILABLE Confirmed by ELENITA ODELL MD ([id number]) on 03/26/2019 9:53:59 AM Referred By: Confirmed By:ELENITA ODELL MD
[2019-03-26] MEDS ORDERED: PRENATAL VITAMINS W/ FOLIC ACID TABLET (FP) PO SCH (10:00)
[2019-03-26] MEDS ORDERED: CEFAZOLIN 1 GM/D5W 1 GM/50 ML BAG IVPB SCH ×2 (10:00→13:30)
[2019-03-26 11:11] LABS: BASO % 0.1 % (0-2.0); EOS % 0.3 % (0-4.5); HEMATOCRIT 25.1 % (32.4-45.2); HEMOGLOBIN 8.3 GM/dL (10.7-15.3); LYMPH % 6.1 % (8-40); MCH 30.8 pg (25.7-33.7); MCHC 33.1 g/dl (32.0-36.0); MEAN CELL VOLUME 93.1 fl (80-96); MEAN PLT VOLUME 8.3 fl (7.5-11.1); MONO % 4.2 % (3.8-10.2); NEUT % 89.3 % (42.8-82.8); PLATELET COUNT 231 K/MM3 (134-434); RDW 13.7 % (11.6-15.6); WHITE BLOOD COUNT 18.6 K/mm3 (4.0-10.0)
--- NOTE | 2019-03-26 11:15 | PN ---
Progress Note (short form) - Note Progress Note: Post Op Note pt feels better no c/o pain or nausea gracia catheter draining urine minda color total output documented 2300 ml( 1100 ml until OR ) Intrauterine blood only in tubing , minimal in gracia bag . no external vaginal bleeding ut firm above pubic symphysis pt appears pale IMP stable s/p evacuation currettage & Bakri Balloon inrauteine BP 129/73, Pulse 84, Temp 98.8, Rr [address] iv pitocin reg diet if stable Problem List - Problems (1) Delayed and secondary hemorrhage with delivery Code(s): O72.2 - DELAYED AND SECONDARY HEMORRHAGE (2) Atonic hemorrhage Code(s): O72.1 - OTHER IMMEDIATE HEMORRHAGE
[2019-03-26 11:22] LABS: ANISOCYTOSIS 0; MACROCYTOSIS 0; PLATELET ESTIMATE NORMAL; TEAR DROP CELLS 1+
[2019-03-26 11:34] LABS: BLOOD UREA NITROGEN 10.2 mg/dL (7-18); CREATININE 0.5 mg/dL (0.55-1.3); POTASSIUM 3.8 mmol/L (3.5-5.1)
[2019-03-26] MEDS: OXYTOCIN 20 UNITS in 0.9% NS 20 UNIT/1,000 ML INFUS.BAG IV SCH ×3 (11:35→20:37)
[2019-03-26] MEDS: PRENATAL VITAMINS W/ FOLIC ACID TABLET (FP) PO SCH (11:53)
[2019-03-26] MEDS: FERROUS SO4 325 MG TABLET (FP) PO SCH ×2 (11:54→17:51)
--- NOTE | 2019-03-26 12:22 | CONS ---
OBSTETRIC GYNECOLOGIC CONSULTATION DATE OF CONSULTATION: DATE OF DICTATION: 03/26/2019 REQUESTING PHYSICIAN: Yumiko Gauthier MD CHIEF COMPLAINT: Patient has delayed hemorrhage. HISTORY: This is a 23-year-old female who was admitted with profuse bleeding. Oxytocin, Methergine were given. Massage was carried out. Bladder was emptied with a Estes catheter. Patient continues to be trickling, and decision was made to take it to the operating room. Patient had the normal vaginal delivery of a baby girl on March 19, 2019. She has been , taking iron. complicated with seizure disorder, possible epilepsy. Patient is being followed by Neurology. Both delivery and early were uneventful until now. REVIEW OF SYSTEMS: Unremarkable. Head and Neck: Within normal limits. Neck: No thyroid problems. Respiratory: No significant issues. Cor: No significant issues. Abdomen: No significant issues. Breasts: No significant issues. Patient is . Obstetric/Gynecologic History: No significant issues other than mentioned above. Extremities: No significant issues. Neurologic: Psychiatry evaluation is impossible. Patient is very distressed and extremely anxious. ALLERGIES: PHYSICAL EXAMINATION: General: Patient is a very pleasant, well-developed, well-nourished female distressed, in pain, extremely anxious, and crying. Skin: Very pale. Chest: Within normal limits. Cor: Within normal limits. Abdomen: Soft, flat, nontender. Pelvic: Uterus compatible with 14 weeks of gestation, well contracted. On pelvic examination, cervix is loose closely, and blood is trickling. Well-repaired, healing, right mediolateral episiotomy. Extremities: Within normal limits. IMPRESSION: Delayed hemorrhage not responding to usual methods and Oxytocin. Estes catheter is in place with good urine output. Patient continues to bleed. Anticipating retained products of conception. PLAN: 1. Dr. Gauthier is planning to take patient to the operating room, which I completely agree with. 2. Suction dilation and curettage with fundal assist to be done. Transabdominal intraoperative sonogram recommended to assess the position of the instrument as well as whether there are any products of conception left. 3. Possible Bakri balloon. 4. Possibility of laparotomy, B-Gimenez or similar sutures briefly discussed with Dr. Gauthier. Possibility of hysterectomy cannot be entirely excluded, although we would very much try avoid it. ABDIEL WOODY MD [id number] MTDJean Carlos
[2019-03-26] MEDS: ACETAMINOPHEN 325 MG TABLET (FP) PO PRN ×2 (13:35→20:43)
[2019-03-26] MEDS: IBUPROFEN 600 MG TABLET (FP) PO PRN ×2 (13:36→20:46)
[2019-03-26] MEDS: WITCH HAZEL 50% (TUCKS) 40 PAD/JAR PAD TP PRN ×2 (13:38→20:46)
--- NOTE | 2019-03-26 15:03 | OP ---
DATE OF OPERATION: 03/26/2019 PREOPERATIVE DIAGNOSIS: Delayed hemorrhage, retained products of conception, atonic hemorrhage. OPERATION DONE: Suction evacuation, curettage, insertion of Bakri balloon, and revision of episiotomy wound. SURGEON: Yumiko Gauthier MD BEHAVIORAL THERAPY COORDINATOR SURGEON: Drake Pastor MD ANESTHESIOLOGIST: Jeremías Kuo ANESTHESIA: General. FINDINGS: This is a 23-year-old 2, para 1-0-1-1 who has a history of a normal vaginal delivery with episiotomy on March 19 presented with heavy vaginal bleeding with clots in the emergency room, and patient continued to bleed in spite of giving Pitocin 40 units in the IV bag, 1000 mcg of Cytotec per rectal , Hemabate 250 mcg x2 doses, Methergine x1 dose. She was given 1 dose of injection Methergine. IV Ancef 2 g was given. Before the surgery, she had a temperature of 101, so IV Tylenol also was given preop . . PROCEDURE: Patient was taken to the operating room table. General anesthesia was given. Lithotomy position was given. Pubis, perineum, vagina were painted with Betadine, draped in usual manner. Before starting the procedure, about 200 mL of blood clots were removed from the vagina. Weighted speculum was put. Anterior lip of the cervix was held with the ring forceps and the 12 number cannula was introduced. Suction cannula was introduced into the uterine cavity, and the contents were aspirated out, and the suction was done. Then with a large curette, uterine cavity was curetted. Some tissue was noted in the suction cannula and with the curette and then the gritty sensation was felt. Emptying of the uterus was confirmed by Dr. Pastor also. Intraoperative ultrasound was done. Confirmed there are no more products of conception seen in the uterus. The patient still continued to have bleeding, so I decided to put a Bakri balloon. Bakri balloon under ultrasound guide was placed up to the fundus, and the uterine balloon was inflated up to 180 mL of saline, and patient tolerated procedure well. Total blood loss in the OR was 500 mL. She received 500 mL of crystalloid solution. Preoperatively, 1 unit of pack cell was given, 2nd unit was continued, which completed in the OR. She was transferred to the recovery room in stable condition. Sukhdeep [id number] PAKO
[2019-03-26] MEDS: METHYLERGONOVINE MALEATE 0.2 MG TABLET (FP) PO SCH ×2 (17:51→20:46)
[2019-03-26] MEDS ORDERED: AMPICILLIN NA/SULBACTAM NA 3 GM in SODIUM CHLORIDE 100 ML IVPB SCH (18:30)
--- NOTE | 2019-03-26 19:48 | PN ---
Progress Note (short form) - Note Progress Note: Patient alert and oriented. She reports migraine headache. Estes and Bakri balloon in place. Approximately 30-40ml in Bakri bag and adequate UOP as reported by nursing Vitals: as recorded abd: soft, n/d, n/t, fundus is firm pelvic: minimal spotting, 80ml removed from bakri balloon A/P: Patient in stable condition following D&C for retained POC and bakri balloon with now 100ml in place. Minimal bleeding and Po methergine ordered. -AM CBC -Continue inpatient observation -D/C Bakri in AM.
[2019-03-26] MEDS: CEFAZOLIN 1 GM/D5W 1 GM/50 ML BAG IVPB SCH (22:13)
[2019-03-27] MEDS: METHYLERGONOVINE MALEATE 0.2 MG TABLET (FP) PO SCH ×3 (01:01→08:45)
[2019-03-27] MEDS: OXYTOCIN 20 UNITS in 0.9% NS 20 UNIT/1,000 ML INFUS.BAG IV SCH (05:37)
[2019-03-27] MEDS: CEFAZOLIN 1 GM/D5W 1 GM/50 ML BAG IVPB SCH ×2 (06:30→12:47)
--- NOTE | 2019-03-27 08:12 | PN ---
Progress Note (short form) - Note Progress Note: 23 yrs s/p 03/19/19 presented to ER with heavy vaginal bleeding, now s/p D&C for management of delayed PPH. Bakri balloon in place, to be D/C'd today. CBC pending. Vital Signs Temp 98.8 F 03/27/19 06:00 Pulse 88 03/27/19 06:00 Resp 18 03/27/19 06:00 BP 127/75 03/27/19 06:00 Pulse Ox 100 03/26/19 10:35 Intake & Output 03/26/19 03/26/19 03/27/19 11:59 23:59 11:59 Intake Total 945 976 1009 Output Total 3100 1700 370 Balance -2200 -900 815 Weight 135 lb Intake: IV 800 1085 NORMAL SALINE+20 UNITS 1085 OXYTOCIN - 20 unit In 1, 000 ml @ 100 mls/hr IV [facility] Rx#:[id number] IVPB 50 100 Oral 750 0 Blood Product 100 Output: Drainage 70 gracia catheter in vagina 70 Urine 2600 1700 300 Gracia 2000 1700 300 Estimated Blood Loss 500 Other: Voiding Method Indwelling Catheter Height 5 ft 3 in Body Mass Index (BMI) 23.9 Weight Measurement Method Stated by Patient Weight Measurement Method Est/Stated by Patient CBC, BMP 03/26/19 10:30 03/26/19 10:30 - No anesthesia complications
--- NOTE | 2019-03-27 08:24 | PN ---
Post Progress Note - Subjective Subjective: Patient is doing well, a "little nervous," no dizziness and sleeping when room was entered. Post Day: 10 (POD # 1 ) Type of Delivery: Vital Signs: Vital Signs Temperature 98.8 F 03/27/19 06:00 Pulse Rate 88 03/27/19 06:00 Respiratory Rate 18 03/27/19 06:00 Blood Pressure 127/75 03/27/19 06:00 O2 Sat by Pulse Oximetry (%) 100 03/26/19 10:35 Breast Exam: Yes: Other (deferred) Uterus: Yes: Fundus Firm Abdomen/GI: Yes: Abdomen soft Lochia, amount: Small Extremities: Yes: Calves non-tender Perineum: Yes: Intact (Bakri balloon removed, minimal amount of blood < 25ml) Activity: Other (patient encouraged to ambulate after CBC) - Labs Labs: CBC WBC 18.6 K/mm3 (4.0-10.0) H 03/26/19 10:30 RBC 2.70 M/mm3 (3.60-5.2) L 03/26/19 10:30 Hgb 8.3 GM/dL (10.7-15.3) L 03/26/19 10:30 Hct 25.1 % (32.4-45.2) L D 03/26/19 10:30 MCV 93.1 fl (80-96) 03/26/19 10:30 MCH 30.8 pg (25.7-33.7) 03/26/19 10:30 MCHC 33.1 g/dl (32.0-36.0) 03/26/19 10:30 RDW 13.7 % (11.6-15.6) 03/26/19 10:30 Plt Count 231 K/MM3 (134-434) D 03/26/19 10:30 MPV 8.3 fl (7.5-11.1) 03/26/19 10:30 Absolute Neuts (auto) 16.6 K/mm3 (1.5-8.0) H 03/26/19 10:30 Neutrophils % 89.3 % (42.8-82.8) H D 03/26/19 10:30 Neutrophils % (Manual) 55.2 % (42.8-82.8) 03/26/19 03:36 Band Neutrophils % 7.3 % 03/26/19 03:36 Lymphocytes % 6.1 % (8-40) L D 03/26/19 10:30 Lymphocytes % (Manual) 22.9 % (8-40) D 03/26/19 03:36 Monocytes % 4.2 % (3.8-10.2) 03/26/19 10:30 Monocytes % (Manual) 6 % (3.8-10.2) D 03/26/19 03:36 Eosinophils % 0.3 % (0-4.5) D 03/26/19 10:30 Eosinophils % (Manual) 2.1 % (0-4.5) D 03/26/19 03:36 Basophils % 0.1 % (0-2.0) 03/26/19 10:30 Basophils % (Manual) 0.0 % (0-2.0) 03/26/19 03:36 Myelocytes % (Man) 0 % (0-2) 03/26/19 03:36 Promyelocytes % (Man) 0 % (0-2) 03/26/19 03:36 Blast Cells % (Manual) 0 % (0-0) 03/26/19 03:36 Nucleated RBC % 0 % (0-0) 03/26/19 10:30 Metamyelocytes 0 % (0-2) 03/26/19 03:36 Hypochromia 0 03/26/19 03:36 Platelet Estimate Normal 03/26/19 03:36 Platelet Comment Present 03/26/19 03:36 Polychromasia 0 03/26/19 03:36 Poikilocytosis 1+ 03/26/19 03:36 Anisocytosis 0 03/26/19 03:36 Microcytosis 0 03/26/19 03:36 Macrocytosis 0 03/26/19 03:36 Tear Drop Cells 1+ 03/26/19 03:36 Stomatocytes 1+ 03/26/19 03:36 Assessment/Plan POD # 1 following D&C and bakri balloon placement for retained POC and PPH. Bakri removed and in stable condition -AM CBC -Ambulation encourage -D/C gracia if stable
[2019-03-27] MEDS: FERROUS SO4 325 MG TABLET (FP) PO SCH ×3 (08:45→17:15)
[2019-03-27] MEDS: PRENATAL VITAMINS W/ FOLIC ACID TABLET (FP) PO SCH (09:35)
[2019-03-27 11:50] LABS: BASO % 0.2 % (0-2.0); EOS % 2.4 % (0-4.5); HEMATOCRIT 20.1 % (32.4-45.2); LYMPH % 23.3 % (8-40); MCH 31.2 pg (25.7-33.7); MCHC 34.2 g/dl (32.0-36.0); MEAN CELL VOLUME 91.2 fl (80-96); NEUT % 66.1 % (42.8-82.8); PLATELET COUNT 252 K/MM3 (134-434); RDW 13.8 % (11.6-15.6); WHITE BLOOD COUNT 12.5 K/mm3 (4.0-10.0)
[2019-03-27 11:56] LABS: HEMOGLOBIN 6.9 GM/dL (10.7-15.3)
[2019-03-27] MEDS: ACETAMINOPHEN 325 MG TABLET (FP) PO PRN (12:56)
[2019-03-27] MEDS: IBUPROFEN 600 MG TABLET (FP) PO PRN (12:58)
[2019-03-27 13:49] LABS: ANISOCYTOSIS 0; MACROCYTOSIS 0; PLATELET ESTIMATE NORMAL
--- NOTE | 2019-03-27 15:17 | PATH ---
Surgical Pathology Report Patient Name: [facility]. Rec. 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 Specimen(s) Received UTERINE CONTENTS Clinical History Vaginal bleeding, hemorrhage Final Diagnosis UTERINE CONTENTS, EVACUATION: SCANT DEGENERATED PLACENTAL TISSUE, GESTATIONAL ENDOMETRIUM, SCANT BENIGN ENDOCERVICAL TISSUE IN A BACKGROUND OF ABUNDANT BLOOD CONSISTENT WITH RETAINED PRODUCTS OF CONCEPTION. Electronically Signed Teer Garcia M.D. Gross Description Received fresh labeled "uterine contents," is a 10.5 x 8.0 x 0.7 cm aggregate of holcomb red soft tissue fragments. The specimen is entirely submitted in 10 cassettes. DL/03/26/2019 saudi/03/26/2019
[2019-03-27] MEDS ORDERED: SENNOSIDES/DOCUSATE COMBO (SENNA PLUS) TABLET (UD) PO PRN ×2 (22:00)
--- NOTE | 2019-03-28 08:13 | DS ---
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 no c/o headache) Eyes: Yes: WNL HENT: Yes: WNL, Normocephalic Neck: Yes: WNL Cardiovascular: Yes: WNL, Regular Rate and Rhythm Respiratory: Yes: WNL, CTA Bilaterally Gastrointestinal: Yes: WNL, Soft ...Rectal Exam: Yes: Deferred Renal/: No: CVA Tenderness - Left, CVA Tenderness - Right ....Post : Yes: Uterus firm, Moderate lochia rubra (episitomy wound healing. c/o perineal soreness recommend sitz baths) Breast(s): Yes: Other (midly engorged . use breast pump) Musculoskeletal: Yes: WNL Extremities: Yes: WNL. No: Calf Tenderness Integumentary: Yes: Body Piercing, Tattoos Neurological: Yes: WNL, Alert, Oriented ...Motor Strength: WNL Psychiatric: Yes: WNL, Alert, Oriented Labs: CBC, BMP 03/27/19 11:00 03/26/19 10:30 Selected Entries 03/26/19 07:00 Pulse Rate 87 Blood Pressure 131/109 H Laboratory Tests 03/28/19 08:00 WBC 10.7 H RBC 3.18 L Hgb 9.5 L Hct 28.0 L D MCV 88.0 MCH 29.9 MCHC 33.9 RDW 15.1 Plt Count 252 MPV 7.8 Absolute Neuts (auto) 7.1 Neutrophils % 66.6 Remarks - Remarks Remarks: 23 yrs s/p with Epi wound ion 03/19/19 presented in Er on 03/26/19 with heavy vaginal bleeding Uterotonics , IV 40 iu Pitocin, Hembate 250 mcg x2 dose, Methergine x 1 inj , , Cytotec x1000 mcg pr given bleeding contd Evacuation & curettage under GA followed by Bakri balloon insertion done on 03/26 Post Op Iv Pitocin & Po methergine x 5 doses given PO Hgb 6.9/hct 20.1 , 2 pack cell units transfused on 03/27/19 Bakri Balloon & gracia catheter removed on 03/27/19 post removal of balloon , bleeding is under control Breast pumping & saving milk for the baby episiotomy wound was revised, resuturing was done Anemia counselled pericare explained Discharge Summary Problems reviewed: Yes Reason For Visit: VAGINAL BLEEDING Current Active Problems Acute blood loss anemia (Acute) Atonic hemorrhage (Acute) Delayed and secondary hemorrhage with delivery (Acute) Vaginal hemorrhage (Acute) Procedures: Principal: evacuation curettage , insertion of Bakri Balloon under GA Other Procedures: 4 units pack cell transfused total. IV ancef prophylactically given for 24 hrs. uterotonics Hospital Course: guarded Health Concerns: anemia Plan of Treatment: as directed Goals: maternal & well being Condition: Stable - Instructions Diet, Activity, Other Instructions: Post Instructions DIET: Continue good diet high in protein, calcium, and iron rich foods. Drink at least eight (8) glasses of water daily in addition to other fluids. ___ Regular diet MEDICATIONS: Continue vitamins and iron as previously directed. Motrin and Tylenol may be taken for minor discomfort. ACTIVITY: Mild to moderate exercise may be started in two (2) weeks. Take frequent rest periods. Resume normal activity after six (6) week check up. WOUND CARE OF OPERATIVE SITE: Continue use of perineal bottle until vaginal discharge stops. Keep area clean. Shower daily. Keep abdominal wound dry. Report any drainage or redness to physician. Tub baths, tampons and douches are not permitted for 6 weeks. SITZ BATHS TID PRN ct Breast feeding & or Bottle feeding BREAST CARE: (For those that are not ): If engorgement occurs: Wear tight fitting bra. Take Tylenol or Motrin for pain. Apply cold packs (ice in bags to each breast ) FAMILY PLANNING: There are many control alternatives to pursue and they should be discussed at your first office visit. You may resume sexual activity after your six (6) week check up. (Remember, breast feeding is not a contraceptive) NEXT PHYSICIAN APPOINTMENT: Be certain to call for a one (1) week appointment, unless otherwise directed. [phone] call for appt Call Clinic or got to Emergency Dept if you have any of the following: Heavy vaginal bleeding Painful urination Leg pain Unusual odor noted to vaginal bleeding High fever Red streaking noted on breast Referrals: Yumiko Gauthier MD [Staff Physician] - Disposition: HOME - Home Medications Comprehensive Discharge Medication List: Ambulatory Orders Pnv No.95/Ferrous Fum/Folic AC [ Vitamin Tablet] 1 tab PO DAILY Acetaminophen [Tylenol .Regular Strength -] 650 mg PO Q3H PRN tablet 03/21/19 Benzocaine [Americaine 20% Newell -] 1 spray TP PRN PRN bottle 03/21/19 Ferrous Sulfate [Feosol] 325 mg PO DAILY #30 tab 03/21/19 Ibuprofen [Motrin -] 200 mg PO Q4H PRN tablet 03/21/19 Vitamins (Sjr) - 1 tab PO DAILY #60 tablet 03/21/19 Witch Joslyn 50% (Tucks) [Tucks Pads -] 1 pad TP PRN PRN pad 03/21/19 Acetaminophen [Tylenol .Regular Strength -] 650 mg PO Q3H PRN tablet 03/28/19 Benzocaine [Americaine 20% Newell -] 1 spray TP PRN PRN bottle 03/28/19 Ferrous Sulfate [Feosol] 325 mg PO BID #60 ud 03/28/19 Ibuprofen [Motrin -] 200 mg PO Q4H PRN tablet 03/28/19 Vitamins (Sjr) - 1 tab PO DAILY #30 tablet 03/28/19 Sennosides/Docusate Sodium [Pericolace -] 2 tablet PO HS PRN #60 tablet Witch Joslyn 50% (Tucks) [Tucks Pads -] 1 pad TP PRN PRN pad 03/28/19
[2019-03-28 08:16] LABS: BASO % 0.3 % (0-2.0); EOS % 3.6 % (0-4.5); HEMOGLOBIN 9.5 GM/dL (10.7-15.3); LYMPH % 21.8 % (8-40); MCH 29.9 pg (25.7-33.7); MCHC 33.9 g/dl (32.0-36.0); MEAN PLT VOLUME 7.8 fl (7.5-11.1); MONO % 7.7 % (3.8-10.2); NEUT % 66.6 % (42.8-82.8); PLATELET COUNT 252 K/MM3 (134-434); RBC 3.18 M/mm3 (3.60-5.2); RDW 15.1 % (11.6-15.6); WHITE BLOOD COUNT 10.7 K/mm3 (4.0-10.0)
[2019-03-28 09:23] VITALS: BP 133/79; PULSE 71; TEMP 99
[2019-03-28] MEDS: FERROUS SO4 325 MG TABLET (FP) PO SCH ×2 (11:15→11:16)
[2019-03-28] MEDS: PRENATAL VITAMINS W/ FOLIC ACID TABLET (FP) PO SCH (11:15)
[2019-03-28] MEDS: WITCH HAZEL 50% (TUCKS) 40 PAD/JAR PAD TP PRN (11:16)
[2019-03-28 13:00] LABS: ANISOCYTOSIS 1+; MACROCYTOSIS 0; OVALOCYTE 1+; PLATELET ESTIMATE NORMAL; TEAR DROP CELLS 1+
== END 2019-03-28 12:15 | disposition home or self-care (01) | DRG 769 ==
LOC: JER 03:25 → JERBED 04:06 → JLDR 05:21 → J3W 11:18
PROVIDERS: ADMIT Obstetrics & Gynecology; ATTEND Obstetrics & Gynecology
PROC: 0W3R7ZZ Control Bleeding in Genitourinary Tract, Via Natural or Artificial Opening (ICD-10-PCS; 2019-03-26)
PROC: 30233N1 Transfusion of Nonautologous Red Blood Cells into Peripheral Vein, Percutaneous Approach (ICD-10-PCS; 2019-03-26)
PROC: 10D17ZZ Extraction of Products of Conception, Retained, Via Natural or Artificial Opening (ICD-10-PCS; principal; 2019-03-26 08:00)
DX: O72.2 Delayed and secondary postpartum hemorrhage (principal); D62 Acute posthemorrhagic anemia; R51 Headache
CPT/HCPCS: 36415; 36430; 36511; 76856-TC; 80048; 80053; 85025; 85610; 85730; 86850; 86900; 86901; 86922; 88305-TC; 93005; 93010; 94760; 99284-25; P9038; P9058